=== PATIENT | male | born 1995 | race Caucasian/White ===

== ENCOUNTER 2016-09-17 19:11 | Emergency (ER) | payer BC ==
[2016-09-17 21:23] VITALS: BP 155/98
[2016-09-17] MEDS ORDERED: Ondansetron ODT TAB* 4 MG PO ONE (21:36)
--- NOTE | 2016-09-17 21:41 | UC ---
Abdominal Pain Male HPI - HPI Summary HPI Summary: "stomach flu" for past 3 d. Started with malaise, body aches, nausea, and profuse vomiting on day 1. Yesterday he felt better but still vomiting a bit. No measured fevers. No diarrhea. Today feels tired but is able to hold down fluids. Still nauseated. No cramping pain. Several members of his family ill with same. Needs work excuse - History of Current Complaint Chief Complaint: UCGI Stated Complaint: STOMACH ACHE Time Seen by Provider: 09/17/16 21:29 Hx Obtained From: Patient Onset/Duration: Gradual Onset, Lasting Days - 3 Timing: Constant Severity Initially: Moderate Severity Currently: Mild Location: Diffuse Radiates: No Character: Aching, Cramping Aggravating Factor(s):: Food Alleviating Factor(s): Rest Associated Signs And Symptoms: Positive: Decreased Appetite, Nausea, Vomiting - 2d ago, none today. Negative: Diaphoresis, Fever, Cough, Chest Pain, Dizzy, Constipation, Blood in Stool, Urinary Symptoms, Diarrhea, Penile Discharge - Risk Factors Testicular Torsion: Negative Cardiac Risk Factors: Negative - Allergies/Home Medications Allergies/Adverse Reactions: Allergies Allergy/AdvReac Type Severity Reaction Status Date / Time Cefprozil [From Cefzil] Allergy Intermediate Rash Verified 09/17/16 21:25 PMH/Surg Hx/FS Hx/Imm Hx Previously Healthy: Yes - Surgical History Surgical History: None - Family History Known Family History: Negative: Seizure Disorder, Blood Disorder - Social History Occupation: Employed Full-time Lives: With Family Alcohol Use: Weekly Substance Use Type: None Smoking Status (MU): Heavy Every Day Tobacco Smoker Type: Cigarettes, Smokeless Tobacco Amount Used/How Often: 1/2 can per day and 1/4 ppd Length of Time of Smoking/Using Tobacco: started at age 16 Have You Smoked in the Last Year: Yes Review of Systems Constitutional: Chills, Fatigue Skin: Negative Eyes: Negative ENT: Negative Respiratory: Negative Cardiovascular: Negative Gastrointestinal: Abdominal Pain, Vomiting Genitourinary: Negative Motor: Negative Neurovascular: Negative Musculoskeletal: Negative Neurological: Negative Psychological: Negative All Other Systems Reviewed And Are Negative: Yes Physical Exam Triage Information Reviewed: Yes Appearance: Well-Appearing, No Pain Distress, Well-Nourished Vital Signs: Initial Vital Signs Temp 97.9 F 09/17/16 21:17 Pulse 87 01/27/17 21:17 Resp 16 09/17/16 21:17 BP 155/98 09/17/16 21:17 Pulse Ox 98 09/17/16 21:17 Vital Signs Reviewed: Yes Eye Exam: Normal ENT Exam: Normal Neck exam: Normal Respiratory Exam: Normal Cardiovascular Exam: Normal Abdominal Exam: Normal Abdomen Description: Positive: Nontender, No Organomegaly, Soft Bowel Sounds: Positive: Present Musculoskeletal Exam: Normal Neurological Exam: Normal Psychological Exam: Normal Skin Exam: Normal Abd Pain Male Course/Dx - Differential Dx/Clinical Impression Differential Diagnosis/HQI/PQRI: Appendicitis, Diverticulitis Provider Diagnoses: gastroenteritis Discharge - Discharge Plan Condition: Stable Disposition: HOME Prescriptions: Ondansetron ODT TAB* [Zofran Odt TAB*] 4 mg PO Q8H PRN #6 tab.odt PRN Reason: Nausea Patient Education Materials: Gastroenteritis (ED) Forms: *Work Release
== END 2016-09-17 21:45 | disposition home or self-care (01) ==
LOC: UCCORT 19:11 → MERGE 19:11 → UCCORT 21:45
DX: K52.9 Noninfective gastroenteritis and colitis, unspecified (principal); Z88.8 Allergy status to other drugs, medicaments and biological substances; F17.210 Nicotine dependence, cigarettes, uncomplicated
CPT/HCPCS: 99202; A9270-GY; G0463